=== PATIENT | female | born 1950 | race Caucasian/White ===

== ENCOUNTER 2020-10-03 16:45 | Emergency (ER) | payer OTHER ==
[~2020-10-03] VITALS: Ht 167.6 cm; Wt 77.1 kg
[~2020-10-03 16:45] MED LIST: ALPRAZOLAM1 MG PO; DIAZEPAM 10 MG10 M2 PO; DIVALPROEX SOD500 M1 PO; DULOXETINE HCL60 MG PO; ESCITALOPRAM OX20 MG PO; GABAPENTIN600 M1 PO; LIDOPATCH1 EACH TRANSDERM; LIPITOR 40 MG T40 M1 PO; LISINOPRIL10 MG PO; MIRALAX17 GM PO; MOBIC15 MG PO; OLANZAPINE20 MG PO; PROTONIX 20 MG20 M1 PO; TRAZODONE HCL100 MG PO; VITAMIN D21250 MC1 PO
[2020-10-03 17:30] LABS: ABSOLUTE NEUTROPHILS 4.9 thou/uL (1.4-8.2); EOSINOPHILS 0.2 % (0.0-3.0); HEMATOCRIT 41.8 % (37.0-47.0); HEMOGLOBIN 14.8 gm/dL (12.0-15.0); LYMPHOCYTES 27.8 % (24.0-44.0); MCH 37.2 pg (26.0-34.0); MCHC 35.4 g/dL (28.0-37.0); MONOCYTES 8.7 % (1.0-8.0); PLATELET COUNT 237 thou/uL (150-400); POLYS 62.3 % (36.0-66.0); RBC 3.98 mil/uL (4.20-5.00); RDW 13.3 % (10.5-14.5); WBC 7.9 thou/uL (4.0-11.0)
[2020-10-03] MEDS ORDERED: LIPITOR40 MG PO (17:36)
[2020-10-03] MEDS ORDERED: DEPAKOTE ER500 M1 PO (17:36)
[2020-10-03] MEDS ORDERED: GABAPENTIN600 M1 PO (17:36)
[2020-10-03] MEDS ORDERED: LISINOPRIL10 MG PO (17:37)
[2020-10-03] MEDS ORDERED: MELOXICAM15 MG PO (17:37)
[2020-10-03] MEDS ORDERED: OLANZAPINE20 MG PO (17:37)
[2020-10-03 17:39] LABS: ANION GAP 15 mmol/L (7-16); BUN 12 mg/dL (7-18); CALCIUM 9.5 mg/dL (8.5-10.1); CHLORIDE 107 mmol/L (98-107); CO2 24 mmol/L (21-32); GLUCOSE 113 mg/dL (74-106); POTASSIUM 3.1 mmol/L (3.5-5.1); SODIUM 146 mmol/L (136-145)
[2020-10-03] MEDS ORDERED: DESYREL150 MG PO (17:40)
[2020-10-03] MEDS ORDERED: PANTOPRAZOLE SO40 M3 PO (17:40)
[2020-10-03] MEDS ORDERED: DIAZEPAM 10 MG10 M1 PO (17:41)
[2020-10-03 17:50] LABS: DIRECT BILIRUBIN 0.1 mg/dL (<0.1-0.2); MAGNESIUM 2.1 mg/dL (1.8-2.4); PHOSPHORUS 3.8 mg/dL (2.5-4.9); SGOT 67 U/L (15-37); SGPT 76 U/L (30-65); TOTAL BILIRUBIN 0.4 mg/dL (0.2-1.0); TOTAL PROTEIN 7.4 g/dL (6.4-8.2); TROPONIN-I <0.06 ng/mL (<0.06)
[2020-10-03 18:02] LABS: SALICYLATE < 2.8 mg/dL (2.8-20.0)
[2020-10-03 19:01] LABS: URINE BILIRUBIN NEGATIVE (Negative); URINE BLOOD TRACE (Negative); URINE CLARITY CLEAR; URINE COLOR YELLOW; URINE GLUCOSE-RANDOM* NEGATIVE (Negative); URINE KETONES 1+ (Negative); URINE LEUKOCYTES-REFLEX NEGATIVE (Negative); URINE NITRITE-REFLEX NEGATIVE (Negative); URINE PROTEIN (DIPSTICK) TRACE (Negative); URINE UROBILINOGEN 0.2 E.U./dl (0.2-1.0)
[2020-10-03 19:09] LABS: AMP/METHAMP Negative (Negative); BARBITURATES Negative (Negative); BENZODIAZEPINES POSITIVE (Negative); COCAINE Negative (Negative); METHADONE Negative (Negative); OPIATES Negative (Negative); PCP Negative (Negative)
[2020-10-03 22:15] VITALS: BP 147/84
--- NOTE | 2020-10-04 07:10 | EKG ---
[place] [address] [facility] [place] [address] ELECTROCARDIOGRAM REPORT Name: MARLENE DONNELLY Kristen Room #: [facility]#: [id number] Admission: 10/03/20 Attend Phys: Discharge: 10/03/20 Date of : 48 Report #: [id number] [facility] ED Test Date: 2020-10-03 Test Time: 17:56:01 Pat Name: MARLENE DONNELLY Department: Room: Gender: F Wrist Liner: anna : 1950 Requested By: Moshe Ngo Order Number: [id number] MD: Darek Martinez Measurements Intervals Leonard Rate: 88 P: -1 GA: 143 QRS: -14 QRSD: 110 T: 12 QT: 343 QTc: 415 Interpretive Statements Sinus tachycardia Multiform ventricular premature complexes Artifact in lead(s) I,aVR,aVL,V1,V2,V3,V4,V5,V6 No previous ECG available for comparison Electronically Signed On 10-04-2020 7:10:04 CDT by Darek Martinez [email or web address] <ELECTRONICALLY SIGNED> By: Darek Martinez MD, [facility] 10/04/20 0710 55 55 Darek Martinez MD, [facility] /EPI
== END 2020-10-03 22:24 ==
LOC: ER 16:45
PROVIDERS: Emergency Medicine
DX: F32.9 Major depressive disorder, single episode, unspecified (principal); Z20.822 Contact with and (suspected) exposure to COVID-19; F03.90 Unspecified dementia, unspecified severity, without behavioral disturbance, psychotic disturbance, mood disturbance, and anxiety; R41.82 Altered mental status, unspecified; I10 Essential (primary) hypertension; E78.5 Hyperlipidemia, unspecified; F41.9 Anxiety disorder, unspecified; K21.9 Gastro-esophageal reflux disease without esophagitis; Z88.5 Allergy status to narcotic agent; Z79.899 Other long term (current) drug therapy

== ENCOUNTER 2020-10-03 22:30 | Inpatient (IN) | payer OTHER ==
[~2020-10-03] VITALS: Ht 162.6 cm; Wt 75.9 kg
[2020-10-03 22:30] VITALS: BP 167/98
[~2020-10-03 22:30] MED LIST changes: +DEPAKOTE ER500 M1 PO; +DESYREL150 MG PO; +DIAZEPAM 10 MG10 M1 PO; +LIPITOR40 MG PO; +MELOXICAM15 MG PO; +PANTOPRAZOLE SO40 M3 PO
--- NOTE | 2020-10-04 02:04 | NUR ---
RECEIVED REPORT FROM CIPRIANO RN IN ED, LAST B/P 147/84, P 89. PT ARRIVED ON UNIT 2230 PT PRESENTS CONFUSED, AAOX1, VS B/P 167/90, P 92, R 20, T 98.2, O2 SAT 98% RA, RR EVEN AND NONLABORED. PT HT S1/S2 RR, LUNGS CLEAR, ABD SOFT AND FLAT ACTIVE. PT HAS HX HTN, HLD, ACID REFLUX, DEMENTIA, ANXIETY AND DEPRESSION. RECEIVED CONSENT FROM JOSE TINAJERO. CONSULTED HCP Clari JEAN NP, Wesley BATISTA MD. PT HAS REMAINED CALM AND COOPERATIVE. ZERO S/S OF ACUTE DISTRESS, PT WILL CONTINUE TO BE MONITOR PER [facility] PROTOCOL.
[2020-10-04 07:10] VITALS: BP 182/115
--- NOTE | 2020-10-04 11:36 | NUR ---
Awake but drowsy this AM. Orientated to person, place and time. Denies SI/HI. Breath sounds clear. Reg HR auscultated. Color pink with brisk capillary refill and palpable peripheral pulses. Independent with voiding, brief dry. Active bowel sounds over soft, rounded abdomen. Can not recall last BM. Ambulates with reg gait.
[2020-10-04 15:40] LABS: HEMATOCRIT 41.5 % (37.0-47.0); HEMOGLOBIN 14.2 gm/dL (12.0-15.0); MCH 36.2 pg (26.0-34.0); MCHC 34.3 g/dL (28.0-37.0); MCV 105.5 fL (80.0-100.0); RBC 3.93 mil/uL (4.20-5.00); WBC 7.1 thou/uL (4.0-11.0)
[2020-10-04 16:05] VITALS: BP 77/53
[2020-10-04 16:05] LABS: ALBUMIN 3.7 g/dL (3.4-5.0); CALCIUM 9.2 mg/dL (8.5-10.1); CREATININE 1.2 mg/dL (0.6-1.0); POTASSIUM 3.9 mmol/L (3.5-5.1); TOTAL BILIRUBIN 0.6 mg/dL (0.2-1.0); TOTAL PROTEIN 6.7 g/dL (6.4-8.2)
[2020-10-04 16:07] VITALS: BP 82/56
[2020-10-04 16:10] VITALS: BP 80/50
[2020-10-04 16:45] VITALS: BP 93/63; BP 98/65
[2020-10-05 09:32] VITALS: BP 113/72
--- NOTE | 2020-10-05 12:10 | NUR ---
PATIENT CARE ASSUMED AT 0700 - AMBULATORY WITH UNSTEADY SHUFFLE AT TIMES. ALERT TO SELF ONLY. HESITANT TO RESPOND TO ASSESSMENT QUESTIONS. MAKES NEEDS KNOWN. REPEATIVE BEHAVIOR - REQUEST MEDICATIONS OFTEN. NO PAIN WHEN ASSESSED, DENIES S/I OR H/I - AFFECT FLAT AND MOOD WORRISOME -
[2020-10-05 19:00] VITALS: BP 141/89
[2020-10-05 23:09] VITALS: BP 141/89
--- NOTE | 2020-10-06 02:01 | NUR ---
Assumed pt care at 1900. pt was oriented to self and situation. pt was calm and co-operative with care. Assessments completed, vss. Pt denies si/hi, denies pain. Pt ambulates. No sign of acute distress noted upon assessments. Took meds whole, no difficulty noted. At this time pt is sleeping. Bed is in low position. Will continue to monitor pt.
[2020-10-06 09:13] VITALS: BP 123/78
--- NOTE | 2020-10-06 10:42 | NUR ---
Received awake on bed. Due medications given as prescribed, able to swallow meds w/o difficulty. On room air. Vital signs stable. Pt woke up this AM, slightly unstable on her feet; Falls bundle in place- assisted back to bed; patient was able to sleep for a few more minutes and when she woke up this time she was more stable on her feet. On regular diet- tolerating well; no nausea, no vomiting and no abdominal pain noted. Continent of bowel and bladder, checked frequently and changed as needed. No IV noted. Pt able to walk in the hallway; pt wanting to go home today, re-oriented and reassured. No complains of pain made during assessment. To continue monitoring patient.
--- NOTE | 2020-10-06 17:22 | H ---
[facility] [place] [place] [address] HISTORY AND PHYSICAL Name: MARLENE DONNELLY Room #: 518B-B ADM IN M.R.#: [id number] Admission: 10/03/20 Attend Phys: Laurel Pope DO Discharge: Date of : 48 Report #: [id number] THIS REPORT FOR: cc: Estelle Blanco MD,Estelle Pope,Laurel Powers DO ~ DOC #: [id number] LAUREL Pope DO DATE OF SERVICE: 10/04/2020 INPATIENT PSYCHIATRIC EVALUATION DATE OF EVALUATION: 10/04/2020. ATTENDING PSYCHIATRIST: Laurel Pope DO CHEMICAL ENGINEERING TECHNOLOGIST: Dr. Montaño. REASON FOR ADMISSION: Self-care failure, progressive symptoms of dementia. SOURCES OF INFORMATION: Emergency room notes, telephone conversation with daughterLinda; interview at wheelchair side with the patient this a.m. CHIEF COMPLAINT: Having trouble with everyday activities since June. HISTORY OF PRESENT ILLNESS: A 70-year-old female began having difficulties April of last year, had been initially admitted to [facility], was released from that facility in June, she was found on the floor of her home and brought to [facility]. They did a workup, which was negative for stroke. The patient was then admitted to the [facility] at [place] for about 10 days in late jun, early july and then discharged to Memory Care Unit. Over the interval, she has been out of the hospital. She was advanced to assisted living and a month ago was discharged home. She is receiving home health for medication management services. She reportedly have been living with her sister, though [place] was wheat I ws told by daughter. The patient is unable to dress herself, work appliances or use a phone. Denied SI and HI. PAST MEDICAL HISTORY: Includes hypertension, hyperlipidemia, reported history of dementia, though not specifically diagnosed here at [facility] [place], unspecified psychosis, GERD, anxiety and depression. FAMILY HISTORY: Negative family history of diabetes. [facility] [place] [place] [address] [place] [address] HISTORY AND PHYSICAL Name: MARLENE DONNELLY Kristen Room #: 518B-B ADM IN M.R.#: [id number] Admission: 10/03/20 Attend Phys: Laurel Pope DO Discharge: Date of : 48 Report #: [id number] SOCIAL HISTORY: The patient does not use tobacco, does not use alcohol. HOME MEDICATIONS: Atorvastatin 40 mg daily, Depakote ER 500 mg twice a day, gabapentin 300 mg 3 times a day, lisinopril 10 mg p.o. daily, meloxicam 15 mg daily, olanzapine 20 mg p.o. daily, pantoprazole 40 mg p.o. daily, trazodone 150 mg p.o. daily, diazepam 2 mg p.o. daily. ALLERGIES: MORPHINE. REVIEW OF SYSTEMS: Unable to be done due to her demented state. Weight 77.11 kilos. LABORATORY DATA: From the ER. Toxicology: Salicylate is less than 2.8, acetaminophen less than 2, benzodiazepines positive. COVID-19 PCR serology was negative. Other information from ER note: TSH 2.122, free T4 1.1, both normal. Sodium slightly high at 146, potassium 3.1, low; chloride 107, bicarbonate 24, anion gap 15, BUN 12, creatinine 1.0, estimated GFR 55, glucose 113, calcium 9.5, phosphorus 3.8, magnesium 2.1, total bilirubin 0.4, direct bilirubin 0.1, AST 67, ALT 76, alkaline phosphatase 73. Troponin less than 0.06, total protein 7.4, albumin 4.0. White count 7.9, H and H 14.8 and 41.8, platelet count 237. CT of the head without contrast showed no acute intracranial abnormalities, intracranial atherosclerosis. It does not look like the patient has had a 12-lead EKG. Information from her visit here last time admission date 07/04/2020, discharge date 07/17/2020, past psychiatric history includes bipolar disorder. Outpatient psychiatrist, Dr. Darek Valdez. Allergies to MORPHINE. There is no medical history of arthritis, sciatica, vertigo, history of encephalopathy at some point. PHYSICAL EXAMINATION: VITAL SIGNS: Today, temperature 36.6, pulse 104, respirations 18, BP varying between 174/90 and 182/115, O2 sat 98%. MUSCULOSKELETAL: Slow gait, normal station, unkempt. MENTAL STATUS EXAMINATION: Well developed. Attention limited. Concentration impaired. Speech slow, occasionally slurred. No psychomotor retardation or psychomotor agitation. Mood and affect is congruent, constricted. Denies SI, HI. Denies auditory, visual, or tactile hallucinations. Memory noted to be impaired. Oriented to person and generally to place, but not the day of the week or date. Insight and judgment are impaired. Fund of knowledge well below average. FORMULATION: A 70-year-old female with history of bipolar disorder and psychosis, admitted for more rapidly progressing dementia symptoms. [facility] [place] [place] [address] [place] [address] HISTORY AND PHYSICAL Name: MARLENE DONNELLY Room #: 518B-B ADM IN M.R.#: [id number] Admission: 10/03/20 Attend Phys: Laurel Pope DO Discharge: Date of : 48 Report #: [id number] DIAGNOSES: At this time, major neurocognitive disorder, unspecified etiology with behavioral disturbance, unspecified psychosis, multiple comorbidities including hypertension. I did find a recent EKG from 10/03/2020. Ventricular rate 88, DC interval 142 milliseconds, QTc 450 milliseconds, sinus tachycardia. PLAN: The patient admitted to geriatric psychiatry, evaluate and stabilize. I want to see what her Depakote levels are likely in a few days. Other meds ordered ergocalciferol 50,000 international units weekly; olanzapine 10 mg p.o. at bedtime, atorvastatin 40 mg p.o. daily, trazodone 150 mg p.o. at bedtime, miralax 17 gram p.o. daily, meloxicam 15 mg p.o. daily, lisinopril 10 mg per day, gabapentin 600 mg p.o. 3 times a day, Depakote ER 500 mg p.o. b.i.d., Protonix 40 mg p.o. daily. Otherwise, house PRNs. ADDITIONAL PLAN: I would like to have family meeting early next week. Time spent on this case is approximately 45 minutes. STRENGTHS: She is insured, has supportive family. WEAKNESSES: Likely progressive neurodegenerative disorder. DO WILLIE Vance/GAUTAM <ELECTRONICALLY SIGNED> By: Laurel Pope DO 10/06/20 1722 1140 1430 Laurel Pope DO /nt
[2020-10-06 19:52] VITALS: BP 157/92
--- NOTE | 2020-10-07 02:26 | NUR ---
PATIENT AOX1 CONFUSED AND FORGETFUL. PATIENT IS NOT ABLE TO EXPESS HER NEEDS. <<SAYS I NEED TISSUE PAPER TO BRUSH MY TEETH>> PATIENT NEEDS MAXIMUM ASSISTANCE WITH ADL, BED MOBILITY, TRANSFER AND TOILETING. PATIENT IS EASY TO REDIRECT AT TIMES. PATIENT HAD A FLAT AFFECT, POOR EYE CONTACT, POOR GROOMING AND HYGIENE. PATIENT IN BED ASLEEP AT THIS TIME BREATHING REGULAR AND UNLABOURED.
[2020-10-07 09:53] VITALS: BP 116/76
[2020-10-07 10:53] VITALS: BP 116/76
--- NOTE | 2020-10-07 11:10 | NUR ---
ASSUMED CARE AT 0700 THIS MORNING. PT. UP AND ON THE UNIT. SHE IS MOSTLY NON-VERBAL THIS MORNING. SHE AMBULATES SOME AND THEN SITS IN A CHAIR. SHE FELL ASLEEP IN THE RECLINING CHAIR. SHE TOOK HER MORNING MEDICATIONS WITHOUT DIFFICULTY. NO NEW PROBLEMS NOTED OR VOICED. FAMILY CALLED FOR AN UPDATE. UPDATE WAS PROVIDED. WILL CONTINUE TO MONITOR.
[2020-10-07 19:18] VITALS: BP 161/71
[2020-10-07 22:00] VITALS: BP 124/82
--- NOTE | 2020-10-08 01:14 | NUR ---
ASSUMED CARE OF PT AT SHIFT CHANGE. PT IS AOX1-2 AND CAN NOT EXPRESS NEEDS EFFECTIVELY. PT IS ABLE TO AMBULATE. PT STATES THAT SHE WANTS TO SEND A LETTER TO FAMILY BEFORE SHE FORGETS BUT DOES NOT WANT TO WRITE IT HERSELF. PT IS CONFUSED AND FORGETFUL BUT WAS EASILY REDIRECTABLE THIS SHIFT. PT TOOK ALL MEDS WHOLE WITH WATER. PT DENED PAIN, NAUSEA, SOA, SI, AND HI. ASSESSMENT CHARTED. PT WAS ABLE OT GET COMFORTABLE AND SLEEP PART OF THE SHIFT. VSS AND NO S/S OF ACUTE DISTRESS. WILL CONTINE TO MONITOR.
[2020-10-08 09:11] VITALS: BP 148/78
[2020-10-08 11:38] VITALS: BP 148/78
--- NOTE | 2020-10-08 11:52 | NUR ---
ASSUMED CARE AT 0700 THIS MORNING. PT. CONTINUES TO BE CONFUSED. SHE IS A&OX1 ONLY. SHE WANDERS ABOUT THE UNIT AIMLESSLY. SHE HAS BEEN ASKED TO COME OUT OF PEERS ROOM ON SEVERAL OCCASIONS. SHE IS ALWAYS SMILING THOUGH AND IS REDIRECTABLE. SHE GOT A SHOWER TODAY. NO NEW PROBLEMS NOTED OR VOICED. SHE TOOK HER MEDICATIONS WITHOUT PROBLEMS NOTED AND IS EATING WELL. WILL CONTINUE TO MONITOR.
[2020-10-08 20:00] VITALS: BP 133/76
[2020-10-08 20:45] VITALS: BP 133/76
--- NOTE | 2020-10-09 02:11 | NUR ---
Assumed pt care at 1900. A/OX2, wandering on hallways at the beginning of the shift looking for her purse;day nurse checked storage locker/inventory and informed pt her purse must be with her sister and pt stopped looking for it. VSS.Denied pain on assessment. Needs assist with the bathroom,dressing. Continent of B&B.Took all meds w/o any problems at HS as scheduled. Pt resting quietly in bed w/o any distress at this time,will continue to monitor pt.
[2020-10-09 08:57] VITALS: BP 115/71
--- NOTE | 2020-10-09 09:40 | NUR ---
NEREIDA administered a SLUMS with pt. Pt scored 06/06. SW team will continue to follow pt during her stay on this unit.
--- NOTE | 2020-10-09 11:24 | NUR ---
Alert and orientated to name and year only. Concerned because her daughter has been taken away from her. daughter is 11 yrs old. Reassured when told her daughter is now in her 30s (states daughter was born in 1986) and that she has been calling in to check on her. Denies SI/HI. Calm, cooperative and compliant. Denies SI/HI. Breath sounds clear. Regular HR auscultated. Color pink with brisk capillary refill and palpable peripheral pulses. Independent with voiding. Active bowel sounds over soft, rounded abdomen. Ambulating around unit without s/o distress.
--- NOTE | 2020-10-09 13:41 | NUR ---
NEREIDA and Dr. Pope attended a meeting with Linda via phone. Linda agreed that pt needs to be placed back into memory care. She asked that NEREIDA send referrals to both [facility] and [facility]. NEREIDA sent both referrals. NEREIDA sent Linda a [facility] welcome email to [email or web address]. NEREIDA team will continue to follow pt during her stay on this unit.
[2020-10-09 19:01] VITALS: BP 140/80
--- NOTE | 2020-10-10 04:53 | NUR ---
10-09-20 CARE TRANSFERRED 0 OBSERVED PT WALKING IN HALLWAY. LATER PT AAOX1, VSS, RR EVEN AND NONLABORED ON RA, PT DENIES PAIN AND SI/HI. PT PRESENT PLEASANTLY CONFUSED BUT IS COOPERATIVE AND SMILING. DURING MEDICATION ADMIN PT REPORTED THAT SHE HAD TO BE AT THE HOSPITAL AT 0600 AM, PT WAS GENTLY REMINDED THAT SHE WAS AT [facility], PT REMAINED HAPPY AND CALM. LATER ASSISTED PT TO BATH ROOM AND ADJUSTED PT BED FOR HER COMFORT. ZERO S/S OF ACUTE DISTRESS NOTED, PT WILL CONTINUE TO BE MONITOR PER [facility] PROTOCOL.
[2020-10-10 08:00] VITALS: BP 138/77
--- NOTE | 2020-10-10 08:37 | NUR ---
RT Progress Note- Melissa has been present in most recreation therapy groups since her admission to the unit, though she often bargains her participation in attempt to receive something in return such as a phone call or time to lay down. Melissa's energy level also varies, which alters her orientation and ability to follow along in groups. Overall Melissa has been cheerful, social, and easily redirectable. CALL CENTER TEAM LEADER will continue to encourage her participation in groups. .
--- NOTE | 2020-10-10 09:27 | NUR ---
NEREIDA sent emails to PM and BD of OP following up on the referrals she sent yesterday. SW team will continue to follow pt during her stay on this unit.
--- NOTE | 2020-10-10 11:09 | NUR ---
Very happy that daughter is here visiting. Alert and orientated to name and place, states she is at [facility] instead of [facility]. Denies SI/HI. Breath sounds clear. Reg HR auscultated. Color pink with brisk capillary refill and palpable peripheral pulses. Independent with voiding. Active bowel sounds over soft, rounded abdomen. Ambulating with regular, steady gait.
[2020-10-10 19:01] VITALS: BP 140/92
--- NOTE | 2020-10-11 01:17 | NUR ---
ASSESSED AT START OF SHIFT, PT UP AND AMBULATING THE HALLWAYS. A&OX3 FORGETFULL. EVENING MEDS GIVEN WHOLE WITH WATER AND PT MARTINEZ IT WELL. ASKED TO SPEAK WITH DAUGHTER OVER THE PHONE. PHONE CALL MADE. PT DENIES N/V. COVID SWAB DONE AND SENT TO LAB. POSSIBLE D/C TO MEMORY CARE UNIT IN FEW DAYS. TYLENOL GIVEN FOR LEG DISCOMFORT. PT RESTING WELL. WILL CONT TO MONITOR.
[2020-10-11 07:24] VITALS: BP 155/94
[2020-10-11 12:30] VITALS: BP 155/94
--- NOTE | 2020-10-11 12:40 | NUR ---
Assumed pt care at 0700. Alert and oriented to person and place. Assessments completed, vss. calm and co-operative with care. Took meds whole, no difficulty noted. Ambulates with a steady gait. Denies si/hi. c/o pain, tylenol administered as ordered. At this time pt is in day room eating lunch. Will continue to monitor pt.
[2020-10-11 19:45] VITALS: BP 115/81
--- NOTE | 2020-10-12 04:27 | NUR ---
ASSESSMENT: PT REMAOIN ALERT AND ORIENT TIMES TWO. ASKING LOTS OF QUESTIONS R/T DISCHARGE, IF FAMILY MEMEBERS ARE AWARE THAT SHE IS HERE, AND WHATS GOING TO BE THE NEXT THING THAT HAPPENS FOR HER TONIGHT. LOTS OF ENCOURAGEMENT AND REASSURANCE GIVEN. PT REMAIN CALM AND COOPERATIVE. SLEPT MOST OF THE NIGHT. DENIES PAIN, SOB AND N/V. TOOK MEDS WITHOUT DIFFICULTY. SLOW PROGRESS TOWARDS DC GOALS, WILL CONTINUE TO MONITOR.
[2020-10-12] MEDS ORDERED: LIPITOR40 MG PO (07:23)
[2020-10-12] MEDS ORDERED: LISINOPRIL10 MG PO (07:26)
[2020-10-12] MEDS ORDERED: DIVALPROEX SOD500 M1 PO (07:27)
[2020-10-12] MEDS ORDERED: ZYPREXA 5 MG TAB5 M1 PO (07:28)
[2020-10-12] MEDS ORDERED: GABAPENTIN 100100 MG PO (07:28)
[2020-10-12] MEDS ORDERED: NAMENDA 5 MG TAB5 M1 PO (07:29)
[2020-10-12] MEDS ORDERED: MIRALAX17 GM PO (07:29)
[2020-10-12] MEDS ORDERED: PROTONIX 20 MG20 M1 PO (07:30)
[2020-10-12] MEDS ORDERED: VITAMIN D21250 MC1 PO (07:30)
[2020-10-12 10:02] VITALS: BP 132/88
[2020-10-12 10:19] VITALS: BP 132/88
--- NOTE | 2020-10-12 11:07 | NUR ---
NEREIDA D/C NOTE NEREIDA faxed to [facility] a copy of pt's discharge docs. NEREIDA will file these docs in pt's hospital file. No other needs for SW team to address at this time.
--- NOTE | 2020-10-12 14:15 | NUR ---
Assumed pt care at 0700. pt was alert and oriented to person, situation and time. Calm and co-operative with care. pt took meds whole, no difficulty noted. ambulates with a steady gait. participated in groups. Denies si/hi, denies pain. Assessment completed, vss. No sign of acute distress noted upon assessments. AT 1040 pt was D/c to [facility]. pt was transported to entrance exit via w/c with belongings. D/C instructions, d/c summary, labs, was faxed to [facility] at 1130. Report was called at 1121 to [facility].
--- NOTE | 2020-10-14 12:43 | D ---
[facility] [place] [address] DISCHARGE SUMMARY Name: MARLENE DONNELLY Room #: 518B-B DIS IN M.R.#: [id number] Admission: 10/03/20 Attend Phys: Laurel Pope DO Discharge: 10/12/20 Date of : 48 Report #: [id number] THIS REPORT FOR: cc: Estelle Blanco MD, Linda MD Kerstein,Laurel Powers DO ~ DOC #: [id number] LAUREL Pope DO DATE OF SERVICE: 10/12/2020 INPATIENT PSYCHIATRIC DISCHARGE SUMMARY ATTENDING PSYCHIATRIST: Laurel Pope DO ELEVATOR WORKER: Dr. Montaño. DISCHARGE DIAGNOSES: Major neurocognitive disorder, unspecified etiology with behavioral disturbance, unspecified psychosis. MEDICAL COMORBIDITIES: Are as follows: Hypertension, well controlled; hyperlipidemia; history of gastroesophageal reflux disease; chronic kidney disease stage 2, stable. The patient is being discharged to [facility] for memory care, psychiatric and medical care by receiving facility. diet: regular activity level as tolerated. DISCHARGE MEDICATIONS: Are as follows: Atorvastatin 40 mg oral at bedtime for hyperlipidemia, lisinopril 10 mg oral daily for hypertension, Depakote sodium ER 500 mg twice daily for mood stabilization, gabapentin 200 mg oral 3 times a day for neuropathic pain, olanzapine 22.5 mg oral at bedtime for psychosis, currently memantine titration is at 5 mg oral twice a day that can be increased up to 10 mg oral twice a day nursing facility, polyethylene glycol 17 g oral daily for bowel motility, pantoprazole 40 mg oral daily for GERD, ergocalciferol 50,000 international units oral weekly on Mondays. LABORATORY DATA: At the time of discharge, most recent hematology: H and H 14.2 and 41.5, MCV increased at 105.5, white count 7.1, platelet count 242. Chemistry: Sodium 145, potassium 3.9, chloride 107, bicarbonate 28, anion gap 10, BUN 14, creatinine 1.2, estimated GFR 44, glucose 104, calcium 9.2, total bilirubin 0.6, AST 45, ALT 63, alkaline phosphatase 74, total protein 6.7, albumin 3.7. Toxicology, Depakote level on 10/08 was 66. COVID-19 PCR serology was negative on 10/10. Imaging this admission, head CT done on 10/03 showed no acute intracranial abnormalities. There is mild diffuse cerebral and cerebellar volume loss. [address] [address] DISCHARGE SUMMARY Name: ANDRZEJMARLENE Room #: 518B-B [facility] IN .R.#: [id number] Admission: 10/03/20 Attend Phys: Laurel Pope DO Discharge: 10/12/20 Date of : 48 Report #: [id number] REASON FOR ADMISSION: Back to the end of September was a 70-year-old female currently in independent living, but had been discharged from [facility] to memory care earlier this year, was found on the floor of her apartment and thus brought to [facility]. There was concern for her declining back into a demented state. HOSPITAL COURSE: The patient was admitted to Geriatric Psychiatry Unit. Unfortunately, the patient is meeting criteria for major neurocognitive disorder given the evaluation on the unit, she requires 24 x 7 care. Cognitive enhancer was initiated. Olanzapine was titrated to 22.5 mg at bedtime for sleep and psychosis. Initially on the unit, the patient was fairly disorganized, more difficult to redirect. With Depakote and olanzapine therapy, the patient's sleep became much more reasonable. She was redirectable today at discharge, she was not suicidal or homicidal. PHYSICAL EXAMINATION: VITAL SIGNS: On the day of discharge, temperature 36.6, pulse 87, respirations 18, BP 132/88, O2 sat 97%. MUSCULOSKELETAL: Slow gait, normal station, unkempt appearance. MENTAL STATUS EXAM: This is a well-developed female apparently stated age. Attention limited. Concentration limited. Speech slow, normal volume and tone. Thought process: Linear. Very limited thought content, relative poverty of thought. Some psychomotor retardation and psychomotor agitation. Mood and affect was constricted and congruent. No SI, no HI. No auditory, visual, or tactile hallucinations. She admitted to no hopelessness, no helplessness. Insight and judgment are impaired. Fund of knowledge is below average. Prognosis for this patient is guarded given age of 70 having a neurodegenerative disorder. DO WILLIE Vance/LINK/GAMA <ELECTRONICALLY SIGNED> By: Laurel Pope DO 10/14/20 1243 1306 1803 Laurel Pope DO /nt
== END 2020-10-12 10:55 | DRG 884 ==
LOC: SBH 22:30
PROVIDERS: Hospitalist; ADMIT Psychiatry & Neurology Psychiatry; ATTEND Psychiatry & Neurology Psychiatry
DX: F01.51 Vascular dementia, unspecified severity, with behavioral disturbance (principal); N17.9 Acute kidney failure, unspecified; F29 Unspecified psychosis not due to a substance or known physiological condition; E78.5 Hyperlipidemia, unspecified; K21.9 Gastro-esophageal reflux disease without esophagitis; N18.2 Chronic kidney disease, stage 2 (mild); F41.9 Anxiety disorder, unspecified; F32.9 Major depressive disorder, single episode, unspecified; E87.6 Hypokalemia; I12.9 Hypertensive chronic kidney disease with stage 1 through stage 4 chronic kidney disease, or unspecified chronic kidney disease; Z20.822 Contact with and (suspected) exposure to COVID-19
CPT/HCPCS: 10880